=== PATIENT | female | born 1960 | race Caucasian/White ===

== ENCOUNTER 2021-07-17 17:41 | Inpatient (IN) | payer BC, OTHER ==
[~2021-07-17] VITALS: Ht 162.6 cm; Wt 124.4 kg
[2021-07-17] MEDS ORDERED: ALBUTEROL SULF 2.5 MG/0.5ML(0.5%) NEB SOLN NEB ONE (18:30)
[2021-07-17] MEDS ORDERED: IPRATROPIUM BROM 0.5 MG/2.5ML INH SOL NEB ONE (18:30)
[2021-07-17] MEDS ORDERED: methylPREDNISolone SOD SUCC 125 MG/2 ML VL IV ONE (18:45)
[2021-07-17 19:02] LABS: Basophils # (auto) 0 10 ^3/uL (0-0.2); Basophils % (auto) 0.4 % (0.0-2.0); Eosinophils # (auto) 0.1 10 ^3/uL (0-0.8); Eosinophils % (auto) 1.6 % (0.0-7.0); Hematocrit 35.9 % (36.0-46.0); Hemoglobin 12.1 g/dL (12.2-16.2); Lymphocytes # (auto) 1.1 10 ^3/uL (0.4-5.4); Lymphocytes % (auto) 12.2 % (10.0-50.0); Mean Corpuscular Hemoglobin 31.8 pg (28.0-32.0); Mean Corpuscular Hgb Conc. 33.6 g/dL (32.0-36.0); Mean Corpuscular Volume 94.6 fL (80.0-100.0); Monocytes # (auto) 0.7 10 ^3/uL (0-1.3); Monocytes % (auto) 7.8 % (0.0-12.0); Neutrophils # (auto) 6.8 10 ^3/uL (1.6-8.6); Red Cell Distribution Width 14.1 % (11.8-14.3); White Blood Cell 8.8 10^3/uL (4.4-10.8)
[2021-07-17 19:19] LABS: Albumin 3.3 g/dL (3.4-5.0); Calcium 8.1 mg/dL (8.5-10.1); Potassium 3.4 mmol/L (3.5-5.1)
[2021-07-17 19:21] LABS: Lactic Acid w/Reflex 3.8 mmol/L (0.4-2.0)
[2021-07-17 19:27] LABS: Bilirubin, Total 0.2 mg/dL (0.2-1.0)
[2021-07-17] MEDS ORDERED: ONDANSETRON HCL 4 MG/2 ML VIAL IV PRN (21:30)
[2021-07-17] MEDS ORDERED: SODIUM CHLORIDE 0.9% 1,000 ML IV ONE (21:30)
[2021-07-17] MEDS ORDERED: HYDROcodone-ACET 5/325MG TAB PO PRN (21:30)
[2021-07-17] MEDS ORDERED: POTASSIUM CHL 20 Meq TABLET PO ONE (21:30)
[2021-07-17] MEDS ORDERED: DOCUSATE SOD 100 MG CAP PO PRN (21:30)
[2021-07-17] MEDS ORDERED: methylPREDNISolone SOD SUCC 40 MG/ML VL IV SCH (22:00)
[2021-07-17] MEDS: SODIUM CHLOR 0.9% PF (SALINE LOCK) 10ML VIAL/SYR IV SCH (22:06)
[2021-07-17] MEDS: FAMOTIDINE (10MG/ML) 2ML VL IV SCH (22:14)
[2021-07-17] MEDS: ASCORBIC ACID 500 MG TAB PO SCH (22:14)
[2021-07-17] MEDS ORDERED: NITROGLYCERIN 0.4 MG SL TAB SL PRN (23:15)
[2021-07-17] MEDS ORDERED: MORPHINE SULFATE INJECTION 2 MG/ML SYRG IV PRN (23:15)
[2021-07-18] MEDS: THROAT LOZENGES(CEPASTAT) MT PRN ×2 (00:39→22:29)
[2021-07-18 06:14] LABS: Basophils # (auto) 0 10 ^3/uL (0-0.2); Basophils % (auto) 0.1 % (0.0-2.0); Eosinophils # (auto) 0 10 ^3/uL (0-0.8); Hematocrit 35.9 % (36.0-46.0); Hemoglobin 12.5 g/dL (12.2-16.2); Lymphocytes # (auto) 0.7 10 ^3/uL (0.4-5.4); Lymphocytes % (auto) 10.6 % (10.0-50.0); Mean Corpuscular Hemoglobin 32.2 pg (28.0-32.0); Mean Corpuscular Hgb Conc. 34.8 g/dL (32.0-36.0); Mean Corpuscular Volume 92.6 fL (80.0-100.0); Monocytes # (auto) 0 10 ^3/uL (0-1.3); Monocytes % (auto) 0.5 % (0.0-12.0); Neutrophils # (auto) 5.8 10 ^3/uL (1.6-8.6); Neutrophils % (auto) 88.8 % (37.0-80.0); Nucleated Red Blood Cells % 0.1 %; Red Blood Cells 3.88 10^6/uL (4.0-5.20); Red Cell Distribution Width 13.9 % (11.8-14.3); White Blood Cell 6.5 10^3/uL (4.4-10.8)
[2021-07-18] MEDS: SODIUM CHLOR 0.9% PF (SALINE LOCK) 10ML VIAL/SYR IV SCH ×3 (06:20→22:28)
[2021-07-18] MEDS: methylPREDNISolone SOD SUCC 40 MG/ML VL IV SCH ×3 (06:20→22:43)
[2021-07-18 06:25] LABS: Albumin 3.4 g/dL (3.4-5.0); Calcium 8.6 mg/dL (8.5-10.1); Potassium 3.9 mmol/L (3.5-5.1)
[2021-07-18 06:34] LABS: BUN/Creatinine Ratio 21.7; Bilirubin, Total 0.3 mg/dL (0.2-1.0); Total Protein 7.3 g/dL (6.4-8.2)
[2021-07-18] MEDS: cefTRIAXone 1GM/50ML D5W 50 ML IV SCH (09:00)
[2021-07-18] MEDS: ZINC SULFATE 220mg CAP or TAB PO SCH (10:00)
[2021-07-18] MEDS: FAMOTIDINE (10MG/ML) 2ML VL IV SCH ×2 (10:00→22:44)
[2021-07-18] MEDS: MULTIPLE VITAMIN TAB PO SCH (10:00)
[2021-07-18] MEDS: ASCORBIC ACID 500 MG TAB PO SCH ×2 (10:00→22:45)
[2021-07-18 16:00] VITALS: BP 117/87
[2021-07-18] MEDS: IPRATROPIUM BROM 0.5 MG/2.5ML INH SOL NEB PRN (19:15)
[2021-07-18] MEDS: ALBUTEROL SULF 2.5 MG/0.5ML(0.5%) NEB SOLN NEB PRN (19:15)
[2021-07-18] MEDS: ACETAMINOPHEN 325 MG TAB PO PRN (20:25)
[2021-07-18 22:00] VITALS: BP 113/73
[2021-07-19 05:00] VITALS: BP 126/64
[2021-07-19] MEDS: methylPREDNISolone SOD SUCC 40 MG/ML VL IV SCH ×3 (06:00→21:20)
[2021-07-19] MEDS: SODIUM CHLOR 0.9% PF (SALINE LOCK) 10ML VIAL/SYR IV SCH ×3 (06:18→21:21)
[2021-07-19] MEDS: cefTRIAXone 1GM/50ML D5W 50 ML IV SCH (09:12)
[2021-07-19] MEDS: ASCORBIC ACID 500 MG TAB PO SCH ×2 (09:13→21:20)
[2021-07-19] MEDS: MULTIPLE VITAMIN TAB PO SCH (09:13)
[2021-07-19] MEDS: FAMOTIDINE (10MG/ML) 2ML VL IV SCH ×2 (09:13→21:20)
[2021-07-19] MEDS: ZINC SULFATE 220mg CAP or TAB PO SCH (09:13)
[2021-07-19 10:31] VITALS: BP 125/57
[2021-07-19 14:46] VITALS: BP 111/65
[2021-07-19 16:43] VITALS: BP 104/48
[2021-07-19] MEDS: ACETAMINOPHEN 325 MG TAB PO PRN (19:40)
[2021-07-19 20:40] VITALS: BP 140/87
[2021-07-19] MEDS: IPRATROPIUM BROM 0.5 MG/2.5ML INH SOL NEB PRN (22:55)
[2021-07-19] MEDS: ALBUTEROL SULF 2.5 MG/0.5ML(0.5%) NEB SOLN NEB PRN (22:55)
[2021-07-20] MEDS ORDERED: ASPI325T4 PO (03:18)
[2021-07-20] MEDS ORDERED: OXY10CRT PO (03:18)
[2021-07-20] MEDS ORDERED: HYDR12.56 PO (03:18)
[2021-07-20] MEDS ORDERED: AMLO-489 PO (03:18)
[2021-07-20 05:00] VITALS: BP 134/81
[2021-07-20] MEDS: SODIUM CHLOR 0.9% PF (SALINE LOCK) 10ML VIAL/SYR IV SCH (05:25)
[2021-07-20] MEDS: methylPREDNISolone SOD SUCC 40 MG/ML VL IV SCH (05:25)
[2021-07-20 08:00] VITALS: BP 127/73
[2021-07-20] MEDS: FAMOTIDINE (10MG/ML) 2ML VL IV SCH (08:24)
[2021-07-20] MEDS: ASCORBIC ACID 500 MG TAB PO SCH (08:24)
[2021-07-20] MEDS: MULTIPLE VITAMIN TAB PO SCH (08:24)
[2021-07-20] MEDS: ZINC SULFATE 220mg CAP or TAB PO SCH (08:24)
[2021-07-20] MEDS ORDERED: PRED20TA2 PO (11:04)
[2021-07-20] MEDS ORDERED: AZIT500T66 PO (11:04)
[2021-07-20 11:08] VITALS: BP 127/73
== END 2021-07-20 15:04 | disposition home or self-care (01) | DRG 189 ==
LOC: EDBD 17:41 → ER 17:41 → OVERFLOW 23:08 → WEST WING 07-18 15:36
PROVIDERS: ADMIT Nurse Practitioner Family; ATTEND Family Medicine
PROC: 5A09357 Assistance with Respiratory Ventilation, Less than 24 Consecutive Hours, Continuous Positive Airway Pressure (ICD-10-PCS; principal; 2021-07-17)
DX: J96.21 Acute and chronic respiratory failure with hypoxia (principal); E87.2 Acidosis; J44.1 Chronic obstructive pulmonary disease with (acute) exacerbation; E87.6 Hypokalemia; F17.210 Nicotine dependence, cigarettes, uncomplicated; I10 Essential (primary) hypertension; Z20.822 Contact with and (suspected) exposure to COVID-19; I95.9 Hypotension, unspecified
CPT/HCPCS: 36415; 71045; 80053; 83605; 84484; 85025; 87426; 93005; 94640; 96361; 96374; G0378; J0696; J3490

== ENCOUNTER 2023-03-23 15:54 | Emergency (ER) | payer BC ==
[~2023-03-23] VITALS: Ht 162.6 cm; Wt 97.1 kg
[~2023-03-23 15:54] MED LIST: AMLO1TAB22 PO; ASPI325T4 PO; AZIT500T66 PO; HYDR12.59 PO; OXY10CRT PO; PRED20TA2 PO
[2023-03-23 16:59] LABS: Basophils # (auto) 0.1 10 ^3/uL (0-0.2); Basophils % (auto) 0.8 % (0.0-2.0); Eosinophils # (auto) 0.4 10 ^3/uL (0-0.8); Eosinophils % (auto) 4.6 % (0.0-7.0); Hematocrit 32.6 % (36.0-46.0); Hemoglobin 11.2 g/dL (12.2-16.2); Lymphocytes # (auto) 2.6 10 ^3/uL (0.4-5.4); Lymphocytes % (auto) 26.7 % (10.0-50.0); Mean Corpuscular Hemoglobin 31.4 pg (28.0-32.0); Mean Corpuscular Hgb Conc. 34.3 g/dL (32.0-36.0); Mean Corpuscular Volume 91.7 fL (80.0-100.0); Monocytes # (auto) 0.8 10 ^3/uL (0-1.3); Monocytes % (auto) 7.8 % (0.0-12.0); Neutrophils # (auto) 5.8 10 ^3/uL (1.6-8.6); Neutrophils % (auto) 60.1 % (37.0-80.0); Red Blood Cells 3.56 10^6/uL (4.0-5.20); Red Cell Distribution Width 14.5 % (11.8-14.3); White Blood Cell 9.6 10^3/uL (4.4-10.8)
[2023-03-23 17:16] LABS: INR 1.04 (0.9-1.15); Partial Thromboplastin Time 31.1 SEC (24.5-34.5); Prothrombin Time 10.9 sec (9.3-11.8)
[2023-03-23 17:24] LABS: Alanine Aminotransferase 32 U/L (7-40); Albumin 4.9 g/dL (3.2-4.8); Alkaline Phosphatase 68 U/L (46-116); Anion Gap 8 (5-15); Aspartate Aminotransferase 21 U/L (13-40); BUN/Creatinine Ratio 25.4 (10.0-20.0); Bilirubin, Total 0.3 mg/dL (0.2-1.0); Blood Urea Nitrogen 32 mg/dL (9-23); Calcium 8.9 mg/dL (8.7-10.4); Carbon Dioxide 24 mmol/L (20-30); Chloride 106 mmol/L (98-107); Glucose 94 mg/dL (74-106); Magnesium 2.1 mg/dL (1.6-2.6); Potassium 3.4 mmol/L (3.5-5.1); Sodium 138 mmol/L (136-145); Total Protein 6.9 g/dL (5.7-8.2)
[2023-03-23 20:47] LABS: Urine Bacteria FEW /hpf (None Seen); Urine Blood Negative /uL (Negative); Urine Clarity Clear (Clear); Urine Color Colorless (Yellow); Urine Hyaline Cast FEW /lpf (0 - 2); Urine Protein, UAD Negative (Negative); Urine Specific Gravity 1.008 (1.001-1.035); Urine Urobilinogen Normal (Negative); Urine WBC <1 /hpf (0 - 5)
[2023-03-23 21:24] VITALS: BP 127/42; PULSE 74; RESP 18; TEMP 97.5; O2SAT 96
[2023-03-23] MEDS ORDERED: MECL1TAB42 PO (21:26)
[2023-03-23] MEDS ORDERED: IBUP-1456 PO (21:26)
[2023-03-23] MEDS ORDERED: ZOFR4T PO (21:26)
== END 2023-03-23 22:21 | disposition home or self-care (01) ==
LOC: ER 15:54
DX: R51.9 Headache, unspecified (principal); R42 Dizziness and giddiness; F17.210 Nicotine dependence, cigarettes, uncomplicated; I10 Essential (primary) hypertension; J44.9 Chronic obstructive pulmonary disease, unspecified
CPT/HCPCS: 36415; 70486; 71045; 80053; 81001; 82962; 83735; 83880; 84484; 85025; 85610; 85730; 93005

== ENCOUNTER 2024-08-05 08:43 | Inpatient (IN) | payer BC ==
[~2024-08-05] VITALS: Ht 162.6 cm; Wt 96.9 kg
[~2024-08-05 08:43] MED LIST changes: +ALBU0.084 NEB; +ALBU108A5 IN; -ASPI325T4 PO; +ASPI325T6 PO; +IBUP-1456 PO; +LEVO500T91 PO; +MECL1TAB42 PO; +ZOFR4T PO
--- NOTE | 2024-08-05 08:54 | ED.PDOC ---
SOB-HPI HPI Comments 64 year old female presents to the ED with chief complaint of SOB. Patient reports that she has been experiencing SOB with associated green productive cough and nasal congestion for the past 3 weeks. Patient relays that she believes she started with a sinus infection that has now progressed to her lungs. Patient denies any chest pain, fever, chills, dizziness, hemoptysis, or headache. Time Seen by MD: 08:52 Primary Care Provider: TRUONG Barrera notes: Nurses Notes, Medications, Allergies Information Source: Patient Mode of Arrival: Ambulatory Severity: Moderate Timing: Weeks Duration: Since onset Context: At Rest PE Risk Factors: None History of: COPD Prehospital treatment: None Modifying Factors: Nothing Associated Signs and Symptoms: Cough, Nasal Congestion If cough with SOB: Productive, Green Past Medical History PAST MEDICAL HISTORY: COPD, HTN Surgical History: Denies all surgeries FIELD ACCOUNT MANAGER History: No Pertinent FIELD ACCOUNT MANAGER History Family History Family History: Reviewed,noncontributory to illness Social History Smoker: Quit Less Than 1 Year, Cigarettes, Less Than 1 Pack/Day Alcohol: Denies ETOH Use Drugs: Denies Drug Use Lives In: Home Constitutional: denies: chills, diaphoresis, fatigue, fever, malaise, sweats, weakness, others EENTM: reports: nose congestion; denies: blurred vision, double vision, ear bleeding, ear discharge, ear drainage, ear pain, ear ringing, eye pain, eye redness, hearing loss, mouth pain, mouth swelling, nasal discharge, nose bleeding, nose pain, photophobia, tearing, throat pain, throat swelling, voice changes, others Respiratory: reports: cough, shortness of breath; denies: hemoptysis, orthopnea, SOB at rest, SOB with excertion, stridor, wheezing, others Cardiovascular: denies: chest pain, dizzy spells, diaphoresis, Dyspnea on exertion, edema, irregular heart beat, left arm pain, lightheadedness, palpitations, PND, syncope, others Gastrointestinal: denies: abdomen distended, abdominal pain, blood streaked bowels, constipated, diarrhea, dysphagia, difficulty swallowing, hematemesis, melena, nausea, poor appetite, poor fluid intake, rectal bleeding, rectal pain, vomiting, others Genitourinary: denies: abnormal vagina bleeding, burning, dyspareunia, dysuria, flank pain, frequency, hematuria, incontinence, pain, , vagina discharge, urgency, others Neurological: denies: dizziness, fainting, headache, left sided numbness, left sided weakness, numbness, paresthesia, pre-existing deficit, right sided numbness, right sided weakness, seizure, speech problems, tingling, tremors, weakness, others Musculoskeletal: denies: back pain, gout, joint pain, joint swelling, muscle pain, muscle stiffness, neck pain, others Integumetry: denies: bruises, change in color, change in hair/nails, dryness, laceration, lesions, lumps, rash, wounds, others Allergic/Immunocompromised: denies: Difficulty Healing, Frequent Infections, Hives, Itching, others Hematologic/Lymphatic: denies: anemia, blood clots, easy bleeding, easy bruising, swollen glands, others Endocrine: denies: excessive hunger, excessive sweating, excessive thirst, excessive urination, flushing, intolerance to cold, intolerance to heat, unexplained weight gain, unexplained weight loss, others Psychiatric: denies: anxiety, bipolar disorder, depression, hopeless, panic disorder, schizophrenia, sleepless, suicidal, others All Other Systems: Reviewed and Negative Physical Exam General Appearance: Moderate Distress, Normal HEENT: Normal ENT Inspection, PERRL/EOMI Neck: Full Range of Motion, Non-Tender, Normal, Normal Inspection Respiratory: Chest Non-Tender, No Accessory Muscle Use, No Respiratory Distress, Other (Coarse breath sounds) Cardiovascular: No Edema, No JVD, No Murmur, No Gallop, Normal Peripheral Pulses, Regular Rate/Rhythm Breast Exam: Deferred Gastrointestinal: No Organomegaly, Non Tender, No Pulsatile Mass, Normal Bowel Sounds, Soft Genitalia: Deferred Pelvic: Deferred Rectal: Deferred Extremities: No calf tenderness, Normal capillary refill, Normal inspection, Normal range of motion, Non-tender, No pedal edema Musculoskeletal : Apperance: Normal Neurologic: Alert, typing bookkeeper II-XII nml as Tested, No Motor Deficits, Normal Affect, Normal Mood, No Sensory Deficits Cerebellar Function: Normal Reflexes: Normal Skin: Dry, Normal Color, Warm Peripheral Pulses: 3+ Radial (R), 3+ Radial (L) Lymphatic: No Adenopathy Was a procedure done? Was a procedure done?: No Differential Dx Differential Diagnosis: Anxiety, Asthma, Bronchitis, CHF, COPD, Pneumonia X-Ray, Labs, Meds, VS Vital Signs Date Time Temp Pulse Resp B/P (MAP) Pulse Ox O2 Delivery O2 Flow Rate FiO2 08/05/24 09:05 100 22 93 Room Air* 0 21 08/05/24 09:05 100 22 160/95 (116) 95 08/05/24 09:02 19 95 Room Air* 0 21 08/05/24 08:59 99.5 94 19 141/72 (95) 95 Lab Test 08/05/24 09:30 Range/Units White Blood Count 6.6 4.4-10.8 10^3/uL Red Blood Count 4.63 4.0-5.20 10^6/uL Hemoglobin 14.7 12.2-16.2 g/dL Hematocrit 43.7 36.0-46.0 % Mean Corpuscular Volume 94.4 80.0-100.0 fL Mean Corpuscular Hemoglobin 31.7 28.0-32.0 pg Mean Corpuscular Hemoglobin Concent 33.6 32.0-36.0 g/dL Red Cell Distribution Width 13.7 11.8-14.3 % Platelet Count 305 140-450 10^3/uL Mean Platelet Volume 7.1 6.9-10.8 fL Neutrophils (%) (Auto) 64.1 37.0-80.0 % Lymphocytes (%) (Auto) 20.8 10.0-50.0 % Monocytes (%) (Auto) 11.7 0.0-12.0 % Eosinophils (%) (Auto) 2.7 0.0-7.0 % Basophils (%) (Auto) 0.7 0.0-2.0 % Neutrophils # (Auto) 4.2 1.6-8.6 10 ^3/uL Lymphocytes # (Auto) 1.4 0.4-5.4 10 ^3/uL Monocytes # (Auto) 0.8 0-1.3 10 ^3/uL Eosinophils # (Auto) 0.2 0-0.8 10 ^3/uL Basophils # (Auto) 0 0-0.2 10 ^3/uL Nucleated Red Blood Cells 0.1 % Sodium Level Pending Potassium Level Pending Chloride Level Pending Carbon Dioxide Level Pending Anion Gap Pending Blood Urea Nitrogen Pending Creatinine Pending Glomerular Filtration Rate Calc Pending BUN/Creatinine Ratio Pending Serum Glucose Pending Calcium Level Pending Current Medications Medications (Trade) Dose Ordered Sig/Silvestre Route Start Time Stop Time Status Last Admin Methylprednisolone Sodium Succinate (Solu Medrol) 125 mg ONCE ONCE IV 08/05/24 09:00 08/05/24 09:01 DC 08/05/24 09:11 Patient alert. Complaining of shortness breath. Has a nasal congestion. Vitals stable. Explained to the patient. Ambulating. No leg swelling. Has coarse breath sounds. Continues to smoke cigarettes pain Counseled patient on effects of smoking cigarettes for 15 minutes. Was given steroid. Pneumonitis. Explained to the patient. Continue monitoring. Chest XR: FINDINGS: Lines and Tubes: None Lungs: Mild congestion. Unchanged 0.9 cm circumscribed nodule in the right upper lobe. Pleura: No effusion. No pneumothorax. Cardiomediastinal contours: Unremarkable Bones: Unremarkable IMPRESSION: Mild congestion Time of 1ST Reevaluation: 09:52 Reevaluation 1ST: Unchanged Patient Education/Counseling: Diagnosis, Treatment Family Education/Counseling: No Family Present Departure 1 Departure Time of Disposition: 08:57 Impression: Primary Impression: COPD exacerbation Additional Impression: Pneumonitis Disposition: ADMITTED INPATIENT Admit to: Med Surg Condition: Guarded Critical Care Note Critical Care Time?: Yes (45 min-critical care time only) Critical care comment: Saturation is low will continue to monitor. Stability Stability form required: No Heart Score Heart Score: Heart Score Response (Comments) Value History N/A 0 EKG N/A 0 Age N/A 0 Risk Factors N/A 0 Troponin N/A 0 Total 0 I personally scribed for FATIMAH JACOBSON MD ([email or web address]) on 08/05/24 at 08:54. Electronically submitted by Charli Vergara ([email or web address]). I personally scribed for FATIMAH JACOBSON MD ([email or web address]) on 08/05/24 at 10:06. Electronically submitted by Charli Vergara ([email or web address]). FATIMAH JACOBSON MD Aug 05, 2024 08:54
[2024-08-05 09:05] VITALS: PULSE 100; RESP 22; O2SAT 93
[2024-08-05] MEDS: methylPREDNISolone SOD SUCC 125 MG/2 ML VL IV ONE (09:11)
--- NOTE | 2024-08-05 09:43 | DVH ---
CHEST RADIOGRAPH Indication: sob Technique: Single frontal view of the chest was obtained COMPARISON: XY CHEST PORTABLE on DOS: 03/23/23, CHEST PORTABLE on DOS: 07/17/21 FINDINGS: Lines and Tubes: None Lungs: Mild congestion. Unchanged 0.9 cm circumscribed nodule in the right upper lobe. Pleura: No effusion. No pneumothorax. Cardiomediastinal contours: Unremarkable Bones: Unremarkable IMPRESSION: Mild congestion
[2024-08-05 09:47] LABS: Basophils # (auto) 0 10 ^3/uL (0-0.2); Basophils % (auto) 0.7 % (0.0-2.0); Eosinophils # (auto) 0.2 10 ^3/uL (0-0.8); Eosinophils % (auto) 2.7 % (0.0-7.0); Hematocrit 43.7 % (36.0-46.0); Hemoglobin 14.7 g/dL (12.2-16.2); Lymphocytes # (auto) 1.4 10 ^3/uL (0.4-5.4); Lymphocytes % (auto) 20.8 % (10.0-50.0); Mean Corpuscular Hemoglobin 31.7 pg (28.0-32.0); Mean Corpuscular Hgb Conc. 33.6 g/dL (32.0-36.0); Mean Corpuscular Volume 94.4 fL (80.0-100.0); Monocytes # (auto) 0.8 10 ^3/uL (0-1.3); Monocytes % (auto) 11.7 % (0.0-12.0); Neutrophils # (auto) 4.2 10 ^3/uL (1.6-8.6); Neutrophils % (auto) 64.1 % (37.0-80.0); Nucleated Red Blood Cells % 0.1 %; Platelet Count (auto) 305 10^3/uL (140-450); Red Blood Cells 4.63 10^6/uL (4.0-5.20); Red Cell Distribution Width 13.7 % (11.8-14.3); White Blood Cell 6.6 10^3/uL (4.4-10.8)
[2024-08-05 09:56] LABS: Potassium 4.1 mmol/L (3.5-5.1); Sodium 137 mmol/L (136-145)
[2024-08-05 09:57] LABS: Anion Gap 6 (5-15); Carbon Dioxide 22 mmol/L (20-31)
[2024-08-05 09:58] LABS: Calcium 9.3 mg/dL (8.7-10.4)
[2024-08-05 10:02] LABS: Glucose 104 mg/dL (74-106)
[2024-08-05 10:03] LABS: BUN/Creatinine Ratio 16.8 (10.0-20.0); Blood Urea Nitrogen 16 mg/dL (9-23)
[2024-08-05 10:24] LABS: Chloride 109 mmol/L (98-107)
[2024-08-05 11:40] LABS: Urine Bacteria None Seen /hpf (None Seen)
[2024-08-05 11:47] LABS: Urine Blood Negative /uL (Negative); Urine Clarity Clear (Clear); Urine Color Light-Yellow (Yellow); Urine Protein, UAD Negative (Negative); Urine Squamous Epithelial Cell FEW /hpf (<5); Urine Urobilinogen Normal (Negative); Urine WBC < 1 /HPF (0-5)
[2024-08-05] MEDS ORDERED: ONDANSETRON HCL 4 MG/2 ML VIAL IV PRN (15:45)
[2024-08-05] MEDS ORDERED: ALBUTEROL SULF 2.5 MG/0.5ML(0.5%) NEB SOLN NEB PRN (15:45)
[2024-08-05] MEDS ORDERED: IPRATROPIUM BROM 0.5 MG/2.5ML INH SOL NEB PRN (15:45)
--- NOTE | 2024-08-05 15:45 | DVHHP2 ---
History of Present Illness Reason for Visit: Shortness of breath History of Present Illness This 64-year-old female presents with the ED with a chief complaint of shortness of breath. The patient reports progressive shortness of breath for the past three weeks, symptoms are associated with productive cough with green mucus and nasal congestion. The patient denies fever, chest pain, difficulty in breathing, wheezing, or other acute symptoms. Past medical history of COPD, hypertension, dyslipidemia, and tobacco use. Past Medical History As stated in HPI Past Surgical History Denies Family History Reviewed, non-contributory to the management of this case. Past Social History Admits to tobacco use less than a pack a day Denies EtOH or illicit drug use Review of Systems Constitutional: Yes: Malaise; No: Fever, Chills, Sweats, Weakness, Other Eyes: No: Pain, Vision change, Conjunctivae inflammation, Eyelid inflammation, Other, Redness ENT: No: Ear pain, Ear discharge, Nose pain, Nose discharge, Nose congestion, Mouth pain, Mouth swelling, Throat pain, Throat swelling, Other Respiratory: Cough, Shortness of breath; No: Dry, SOB with excertion, Wheezing, Hemoptysis, Pleuritic Pain, Sputum, Wheezing, Other Cardiovascular: No: Chest Pain, Palpitations, Orthopnea, Paroxysmal Noc. Dyspnea, Edema, Lt Headedness, Other Gastrointestinal: No: Nausea, Vomiting, Abdominal Pain, Diarrhea, Constipation, Melena, Hematochezia, Other Genitourinary: No Dysuria, No Frequency, No Incontinence, No Hematuria, No Retention, No Other Musculoskeletal: No: other, neck pain, shoulder pain, arm pain, back pain, hand pain, leg pain, foot pain Skin: No: Rash, Lesions, Jaundice, Bruising, Other Neurological: No: Weakness, Numbness, Incoordination, Change in speech, Confusion, Seizures, Other Allergies: Coded Allergies: NO KNOWN ALLERGIES (Unverified , 07/17/21) Exam Vital Signs Vital Signs Date Time Temp Pulse Resp B/P (MAP) Pulse Ox O2 Delivery O2 Flow Rate FiO2 08/05/24 12:34 98.7 79 18 140/72 (94) 95 98.7 08/05/24 09:05 Room Air* 0 21 General Appearance: Alert, Oriented X3, Cooperative, mild distress HEENT: Atraumatic, PERRLA, EOMI, Mucous membr. moist/pink Respiratory: Clear to auscultation, Normal air movement Cardiovascular: Regular rate, Normal S1, Normal S2 Abdominal: Normal bowel sounds, Soft, No tenderness Extremities: No clubbing, No cyanosis, No edema Skin: No rashes, No breakdown, No significant lesion Neuro: Normal gait, Normal speech, Normal tone Psych/Mental Status: Mental status NL Labs/Xrays Labs Test 08/05/24 11:15 08/05/24 09:30 Range/Units Urine Color Light-yellow Yellow Urine Clarity Clear Clear Urine pH 6.0 5.0-9.0 Urine Specific [place] 1.020 1.001-1.035 Urine Protein Negative Negative Urine Ketones Negative Negative Urine Blood Negative Negative /uL Urine Nitrite Negative Negative Urine Bilirubin Negative Negative Urine Urobilinogen Normal Negative mg/dL Urine Leukocyte Esterase Negative Negative /uL Urine RBC 1 0 - 4 /hpf Urine Microscopic WBC < 1 0-5 /HPF Urine Squamous Epithelial Cells Few <5 /hpf Urine Bacteria None seen None Seen /hpf Urine Glucose Normal Normal mg/dL White Blood Count 6.6 4.4-10.8 10^3/uL Red Blood Count 4.63 4.0-5.20 10^6/uL Hemoglobin 14.7 12.2-16.2 g/dL Hematocrit 43.7 36.0-46.0 % Mean Corpuscular Volume 94.4 80.0-100.0 fL Mean Corpuscular Hemoglobin 31.7 28.0-32.0 pg Mean Corpuscular Hemoglobin Concent 33.6 32.0-36.0 g/dL Red Cell Distribution Width 13.7 11.8-14.3 % Platelet Count 305 140-450 10^3/uL Mean Platelet Volume 7.1 6.9-10.8 fL Neutrophils (%) (Auto) 64.1 37.0-80.0 % Lymphocytes (%) (Auto) 20.8 10.0-50.0 % Monocytes (%) (Auto) 11.7 0.0-12.0 % Eosinophils (%) (Auto) 2.7 0.0-7.0 % Basophils (%) (Auto) 0.7 0.0-2.0 % Neutrophils # (Auto) 4.2 1.6-8.6 10 ^3/uL Lymphocytes # (Auto) 1.4 0.4-5.4 10 ^3/uL Monocytes # (Auto) 0.8 0-1.3 10 ^3/uL Eosinophils # (Auto) 0.2 0-0.8 10 ^3/uL Basophils # (Auto) 0 0-0.2 10 ^3/uL Nucleated Red Blood Cells 0.1 % Sodium Level 137 136-145 mmol/L Potassium Level 4.1 3.5-5.1 mmol/L Chloride Level 109 H 98-107 mmol/L Carbon Dioxide Level 22 20-31 mmol/L Anion Gap 6 5-15 Blood Urea Nitrogen 16 9-23 mg/dL Creatinine 0.95 0.550-1.02 mg/dL Glomerular Filtration Rate Calc 67 >90 mL/min BUN/Creatinine Ratio 16.8 10.0-20.0 Serum Glucose 104 74-106 mg/dL Calcium Level 9.3 8.7-10.4 mg/dL PROCEDURE(s): CXRP - CHEST PORTABLE REASON: sob ORDER NUMBER(s): [id number], ACCESSION NUMBER(s): [id number] CHEST RADIOGRAPH Indication: sob Technique: Single frontal view of the chest was obtained COMPARISON: XY CHEST PORTABLE on DOS: 03/23/23, CHEST PORTABLE on DOS: 07/17/21 FINDINGS: Lines and Tubes: None Lungs: Mild congestion. Unchanged 0.9 cm circumscribed nodule in the right upper lobe. Pleura: No effusion. No pneumothorax. Cardiomediastinal contours: Unremarkable Bones: Unremarkable IMPRESSION: Mild congestion Assessment/Plan Assessment/Plan # acute on chronic respiratory failure # possible COPD exacerbation # rule out respiratory viral infection # pulmonary congestion Admit to medical unit DuoNeb Steroids O2 supplement to keep sat >90% Chest x-ray in a.m. Check for influenza and COVID # hypertension Amlodipine Hydralazine as needed # dyslipidemia Fenofibrate Lipid panel # nicotine dependence Smoking cessation counseled Nicotine patch # morbid obesity Lifestyle modification counseled with diet, regular exercise, weight loss DVT prophylaxis Medical plan discussed with patient and RN Plan discussed with: Patient My Orders Orders - ERROL ANGEL Procedure Category Date Status Time Rapid Influenza A&B LAB 08/05/24 Logged 15:28 Covid19 Antigen Caren LAB 08/05/24 Logged Date of Service: Aug 05, 2024 Billing Provider: JUAT,ERROL C GAS APPLIANCE MECHANIC Common Visit Codes: [id number] INP/OBS CARE (HIGH) ERROL ANGEL GAS APPLIANCE MECHANIC Aug 05, 2024 15:45
[2024-08-05] MEDS ORDERED: FENO200C22 PO (15:58)
[2024-08-05 16:22] LABS: Triglycerides 128 mg/dL (< 150)
[2024-08-05 16:24] LABS: Cholesterol 168 mg/dL (< 200); HDL Cholesterol 52 mg/dL (40-59)
[2024-08-05 16:26] VITALS: BP 140/72; PULSE 74; RESP 18; TEMP 98.7; O2SAT 95
[2024-08-05 16:28] LABS: LDL Cholesterol 112 mg/dL (< 100)
[2024-08-05 18:05] VITALS: O2SAT 96
[2024-08-05] MEDS: IPRATROPIUM BROM 0.5 MG/2.5ML INH SOL NEB SCH (18:09)
[2024-08-05] MEDS: ALBUTEROL SULF 2.5 MG/0.5ML(0.5%) NEB SOLN NEB SCH (18:09)
[2024-08-05] MEDS: IPRATROPIUM BROM 0.5 MG/2.5ML INH SOL ONE (18:10)
[2024-08-05] MEDS: ALBUTEROL SULF 2.5 MG/0.5ML(0.5%) NEB SOLN ONE (18:10)
[2024-08-05 18:13] VITALS: PULSE 76; RESP 18; O2SAT 100
[2024-08-05 18:38] LABS: Rapid Influenza A Negative (Negative); Rapid Influenza B Negative (Negative)
[2024-08-05 18:46] LABS: COVID19 ANTIGEN SOFIA FIA NEGATIVE (NEGATIVE)
[2024-08-05 21:15] VITALS: BP 120/68; PULSE 88; RESP 18; TEMP 97.9; O2SAT 94
[2024-08-05 21:20] VITALS: PULSE 88; RESP 18; O2SAT 99
[2024-08-05] MEDS: FENOFIBRATE MICRONIZED 200 MG PO SCH (22:00)
[2024-08-05] MEDS: methylPREDNISolone SOD SUCC 40 MG/ML VL IV SCH (22:28)
[2024-08-05] MEDS: NICOTINE 7MG/24HR TOPICAL PATCH TD SCH (22:29)
[2024-08-05] MEDS: NICOTINE 7MG/24HR TOPICAL PATCH TD ONE (22:30)
[2024-08-05] MEDS: methylPREDNISolone SOD SUCC 40 MG/ML VL ONE (22:31)
[2024-08-06] VITALS (15 sets, daily range): BP systolic 109–160; BP diastolic 57–70; PULSE 65–95; RESP 16–20; TEMP 98.1–98.6; O2SAT 92–100
--- NOTE | 2024-08-06 06:26 | DVH ---
CHEST RADIOGRAPH Indication: sob Technique: Single frontal view of the chest was obtained Comparison: XY CHEST PORTABLE on DOS: 08/05/24 FINDINGS: Lines and Tubes: None Lungs: Interstitial prominence. No focal consolidation. Pleura: No effusion. No pneumothorax. Cardiomediastinal contours: Unremarkable Bones: No acute osseous abnormality. IMPRESSION: 1. Mild pulmonary congestion.
[2024-08-06 06:36] LABS: Basophils # (auto) 0.1 10 ^3/uL (0-0.2); Basophils % (auto) 1.1 % (0.0-2.0); Eosinophils # (auto) 0 10 ^3/uL (0-0.8); Eosinophils % (auto) 0.2 % (0.0-7.0); Hematocrit 40.2 % (36.0-46.0); Hemoglobin 13.7 g/dL (12.2-16.2); Lymphocytes # (auto) 0.7 10 ^3/uL (0.4-5.4); Lymphocytes % (auto) 8.4 % (10.0-50.0); Mean Corpuscular Hemoglobin 31.8 pg (28.0-32.0); Mean Corpuscular Volume 93.6 fL (80.0-100.0); Monocytes # (auto) 0.4 10 ^3/uL (0-1.3); Monocytes % (auto) 4.4 % (0.0-12.0); Neutrophils # (auto) 7.4 10 ^3/uL (1.6-8.6); Neutrophils % (auto) 85.9 % (37.0-80.0); Platelet Count (auto) 276 10^3/uL (140-450); Red Cell Distribution Width 13.9 % (11.8-14.3); White Blood Cell 8.6 10^3/uL (4.4-10.8)
[2024-08-06 06:56] LABS: Alkaline Phosphatase 101 U/L (46-116); Anion Gap 8 (5-15); BUN/Creatinine Ratio 19.7 (10.0-20.0); Blood Urea Nitrogen 13 mg/dL (9-23); Calcium 9.4 mg/dL (8.7-10.4); Carbon Dioxide 20 mmol/L (20-31); Potassium 3.9 mmol/L (3.5-5.1); Sodium 138 mmol/L (136-145)
[2024-08-06 06:57] LABS: Albumin 4.2 g/dL (3.2-4.8); Aspartate Aminotransferase 26 U/L (13-40)
[2024-08-06 07:05] LABS: Alanine Aminotransferase 44 U/L (7-40); Bilirubin, Total 0.2 mg/dL (0.2-1.0); Chloride 110 mmol/L (98-107); Glucose 142 mg/dL (74-106)
[2024-08-06] MEDS ORDERED: FENOFIBRATE MICRONIZED PO SCH (10:00)
[2024-08-06] MEDS ORDERED: NICOTINE 7MG/24HR TOPICAL PATCH TD SCH (10:00)
[2024-08-06] MEDS: amLODIPine BESYLATE 5 MG TAB PO SCH (10:13)
[2024-08-06] MEDS: ENOXAPARIN SOD 40 MG/0.4 ML SYRINGE SC SCH (10:13)
--- NOTE | 2024-08-06 20:08 | DVHPN2 ---
Assessment/Plan Assessment/Plan Progress note 64 yo F smoker with COPD, HTN, HLD admitted for COPD exacerbation. Physical exam Alert oriented x4 Obese No JVD S1 S2 RRR no murmur Mild wheezing no crackles Abdomen soft non tender Trace LE edema Labs imaging EKG reviewed Assessment and plan Acute on chronic hypoxic respiratory failure COPD group E with exacerbation 2/2 viral URI? PNA? Hypertension Hyperlipidemia Obesity Tobacco use disorder [place] spo2 >90% Empiric ceftriaxone azithromycin prednisone albuterol ipatropium resume home meds BNP NRT reinforce smoking cessation Diet CC dvt ppx ambulatory Plan discussed with: Patient My Orders Orders - VALENTINA HANLEY MD Procedure Category Date Status Time Basic Metabolic Panel LAB 08/07/24 Verified 04:00 Complete Blood Count LAB 08/07/24 Verified 04:00 Magnesium LAB 08/07/24 Verified 04:00 Phosphorus LAB 08/07/24 Verified 04:00 Prednisone Tablet PHA 08/07/24 In Process 10:00 Date of Service: Aug 06, 2024 Billing Provider: VALENTINA HANLEY MD Common Visit Codes: [id number] INP/OBS CARE(HIGH) VALENTINA HANLEY MD Aug 06, 2024 20:08
[2024-08-07] VITALS (12 sets, daily range): BP systolic 135–154; BP diastolic 59–81; PULSE 60–75; RESP 16–18; TEMP 97.4–98.5; O2SAT 93–100
[2024-08-07] MEDS: ALBUTEROL SULF 2.5 MG/0.5ML(0.5%) NEB SOLN ONE ×3 (00:23→11:45)
[2024-08-07] MEDS: IPRATROPIUM BROM 0.5 MG/2.5ML INH SOL ONE ×3 (00:23→11:44)
[2024-08-07 05:38] LABS: Basophils # (auto) 0 10 ^3/uL (0-0.2); Basophils % (auto) 0.2 % (0.0-2.0); Eosinophils # (auto) 0 10 ^3/uL (0-0.8); Eosinophils % (auto) 0.2 % (0.0-7.0); Hematocrit 39.2 % (36.0-46.0); Hemoglobin 13.5 g/dL (12.2-16.2); Lymphocytes # (auto) 2.6 10 ^3/uL (0.4-5.4); Lymphocytes % (auto) 21.6 % (10.0-50.0); Mean Corpuscular Hgb Conc. 34.5 g/dL (32.0-36.0); Mean Corpuscular Volume 92.6 fL (80.0-100.0); Monocytes # (auto) 0.9 10 ^3/uL (0-1.3); Monocytes % (auto) 7.7 % (0.0-12.0); Neutrophils # (auto) 8.5 10 ^3/uL (1.6-8.6); Neutrophils % (auto) 70.3 % (37.0-80.0); Platelet Count (auto) 272 10^3/uL (140-450); Red Blood Cells 4.23 10^6/uL (4.0-5.20); Red Cell Distribution Width 13.8 % (11.8-14.3); White Blood Cell 12.1 10^3/uL (4.4-10.8)
[2024-08-07 05:46] LABS: Potassium 3.9 mmol/L (3.5-5.1); Sodium 139 mmol/L (136-145)
[2024-08-07 05:47] LABS: Anion Gap 8 (5-15); Carbon Dioxide 21 mmol/L (20-31)
[2024-08-07 05:52] LABS: BUN/Creatinine Ratio 22.7 (10.0-20.0); Blood Urea Nitrogen 15 mg/dL (9-23); Glucose 88 mg/dL (74-106)
[2024-08-07 05:53] LABS: Magnesium 2.1 mg/dL (1.6-2.6)
[2024-08-07 05:54] LABS: Phosphorus 3.2 mg/dL (2.4-5.1)
[2024-08-07 06:22] LABS: Chloride 110 mmol/L (98-107)
[2024-08-07] MEDS: predniSONE 20 MG TAB PO SCH (08:54)
[2024-08-07] MEDS ORDERED: UMEC1INH IN (12:46)
[2024-08-07] MEDS ORDERED: PRED20TA2 PO (12:46)
[2024-08-07] MEDS ORDERED: AZIT-185 PO (12:46)
[2024-08-07] MEDS ORDERED: NICO14DI9 TD (12:47)
--- NOTE | 2024-08-07 12:49 | DVHDS2 ---
Discharge Summary Date of Admission Aug 05, 2024 at 15:40 Date of Discharge: Aug 07, 2024 Labs/Diagnostic Data: Laboratory Results Test 08/07/24 05:19 08/06/24 05:16 08/05/24 17:05 08/05/24 11:15 White Blood Count 12.1 10^3/uL (4.4-10.8) Red Blood Count 4.23 10^6/uL (4.0-5.20) Hemoglobin 13.5 g/dL (12.2-16.2) Hematocrit 39.2 % (36.0-46.0) Mean Corpuscular Volume 92.6 fL (80.0-100.0) Mean Corpuscular Hemoglobin 32.0 pg (28.0-32.0) Mean Corpuscular Hemoglobin Concent 34.5 g/dL (32.0-36.0) Red Cell Distribution Width 13.8 % (11.8-14.3) Platelet Count 272 10^3/uL (140-450) Mean Platelet Volume 7.3 fL (6.9-10.8) Neutrophils (%) (Auto) 70.3 % (37.0-80.0) Lymphocytes (%) (Auto) 21.6 % (10.0-50.0) Monocytes (%) (Auto) 7.7 % (0.0-12.0) Eosinophils (%) (Auto) 0.2 % (0.0-7.0) Basophils (%) (Auto) 0.2 % (0.0-2.0) Neutrophils # (Auto) 8.5 10 ^3/uL (1.6-8.6) Lymphocytes # (Auto) 2.6 10 ^3/uL (0.4-5.4) Monocytes # (Auto) 0.9 10 ^3/uL (0-1.3) Eosinophils # (Auto) 0 10 ^3/uL (0-0.8) Basophils # (Auto) 0 10 ^3/uL (0-0.2) Nucleated Red Blood Cells 0.0 % Sodium Level 139 mmol/L (136-145) Potassium Level 3.9 mmol/L (3.5-5.1) Chloride Level 110 mmol/L (98-107) Carbon Dioxide Level 21 mmol/L (20-31) Anion Gap 8 (5-15) Blood Urea Nitrogen 15 mg/dL (9-23) Creatinine 0.66 mg/dL (0.550-1.02) Glomerular Filtration Rate Calc 99 mL/min (>90) BUN/Creatinine Ratio 22.7 (10.0-20.0) Serum Glucose 88 mg/dL (74-106) Calcium Level 9.0 mg/dL (8.7-10.4) Phosphorus Level 3.2 mg/dL (2.4-5.1) Magnesium Level 2.1 mg/dL (1.6-2.6) Total Bilirubin 0.2 mg/dL (0.2-1.0) Aspartate Amino Transferase (AST) 26 U/L (13-40) Alanine Aminotransferase (ALT) 44 U/L (7-40) Alkaline Phosphatase 101 U/L (46-116) B-Type Natriuretic Peptide 42.57 pg/mL (0-100) Total Protein 7.0 g/dL (5.7-8.2) Albumin 4.2 g/dL (3.2-4.8) Influenza Type A Antigen Negative (Negative) Influenza Type B Antigen Negative (Negative) SARS-CoV-2 Antigen (Rapid) Negative (NEGATIVE) Urine Color Light-yellow (Yellow) Urine Clarity Clear (Clear) Urine pH 6.0 (5.0-9.0) Urine Specific [place] 1.020 (1.001-1.035) Urine Protein Negative (Negative) Urine Ketones Negative (Negative) Urine Blood Negative /uL (Negative) Urine Nitrite Negative (Negative) Urine Bilirubin Negative (Negative) Urine Urobilinogen Normal mg/dL (Negative) Urine Leukocyte Esterase Negative /uL (Negative) Urine RBC 1 /hpf (0 - 4) Urine Microscopic WBC < 1 /HPF (0-5) Urine Squamous Epithelial Cells Few /hpf (<5) Urine Bacteria None seen /hpf (None Seen) Urine Glucose Normal mg/dL (Normal) Test 08/05/24 09:30 Triglycerides Level 128 mg/dL (< 150) Cholesterol Level 168 mg/dL (< 200) LDL Cholesterol 112 mg/dL (< 100) HDL Cholesterol 52 mg/dL (40-59) Other Laboratory Tests 08/07/24 05:19 Brief Hx & Hospital Course: 64 F with COPD, HTN, HLD, smoker admitted for COPD exacerbation likely from viral URI, started on prednisone and nebs treatment, improved. stable to discharge home. needs pcp and pulm follow up. smoking cessation discussed, NRT sent Condition at Discharge: Good Final Diagnosis/Problems List COPD group e with exacerbation Discharge Disposition: Home Discharge Instruct/Medications Diet: Consistent carbohydrate, Cardiac 2g Na,low cholest Activity: No Restrictions, As Tolerated Follow Up/Referral: PCP dc clinic 7 days Medications: incruse prednisone azithromycin 39 Discharge Statement: "Patient was advised to return to the ER or call 911 if any headaches, dizziness, shortness of breath, chest pain, abdominal pain, bleeding, fevers, or worsening of medical condition. Patient was counseled about treatment plan, medications, possible side effects, patientverbalized understanding. All questions were answered to the best of my ability. This discharge took greater then 30 minutes in planning, reviewing documentation, counseling the patient, and discussing with other team members." ASSESSMENT ASSESSMENT Assessment Acute on chronic hypoxic respiratory failure COPD group E with exacerbation 2/2 viral URI? PNA? Hypertension Hyperlipidemia Obesity Tobacco use disorder Date of Service: Aug 07, 2024 Billing Provider: VALENTINA HANLEY MD Common Visit Codes: [id number] DISCH DAY >30min Secondary Visit Codes: [id number] CHNG SMOKING 3-10m VALENTINA HANLEY MD Aug 07, 2024 12:49
== END 2024-08-07 14:52 | disposition home or self-care (01) | DRG 189 ==
LOC: ER 08:43 → OVERFLOW 15:40 → ER 15:45 → CENTRAL 21:15
PROVIDERS: ADMIT Registered Nurse; ATTEND Student in an Organized Health Care Education/Training Program
DX: J96.21 Acute and chronic respiratory failure with hypoxia (principal); J44.1 Chronic obstructive pulmonary disease with (acute) exacerbation; J06.9 Acute upper respiratory infection, unspecified; E78.5 Hyperlipidemia, unspecified; E66.01 Morbid (severe) obesity due to excess calories; Z20.822 Contact with and (suspected) exposure to COVID-19; J98.4 Other disorders of lung; I10 Essential (primary) hypertension; Z87.891 Personal history of nicotine dependence; Z71.6 Tobacco abuse counseling; Z68.36 Body mass index [BMI] 36.0-36.9, adult
CPT/HCPCS: 36415; 71045; 80048; 80053; 80061; 81001; 83735; 83880; 84100; 85025; 87426; 87804; 94640; 96374; 99291; G0378